=== PATIENT | female | born 2000 | race Two or more races ===

== ENCOUNTER 2024-09-10 17:26 | Emergency (ER) | payer SELFPAY ==
[2024-09-10 17:32] VITALS: BP 144/86; PULSE 72; RESP 19; TEMP 37.1; O2SAT 98
[2024-09-10 17:36] VITALS: BMI 49.8
[2024-09-10 17:50] VITALS: BP 138/72; PULSE 77; RESP 20; TEMP 36.8; O2SAT 97
[2024-09-10 17:52] VITALS: BMI 49.8
--- NOTE | 2024-09-10 17:57 | XR_ITS ---
EXAMINATION: Ankle, left . Technique: Ankle AP, oblique, lateral 3 views Date and time of exam: September 10, 2024 2157 hrs. Indications: Patient fell today with injury to the ankle, ankle pain. Findings: Acute fracture fibular shaft with 5 mm offset at the fracture site Acute displaced comminuted fracture medial malleolus Ankle subluxation with displacement of the distal articulating surface of the tibia medially relative to the talus No posterior malleolar fracture Impression: Acute fracture distal fibular shaft Acute comminuted fractures medial malleolus Ankle subluxation
--- NOTE | 2024-09-10 18:12 | PC.NURSE ---
PT WAS HIKING TRAIL OF [place] WHEN SHE TWISTED HER LEFT ANKLE, HAD TO WAIT HOURS FOR HELP TO REACH HER. PT REPORTS THAT SHE IS HAVING 7/10 PAIN. PT CAME WITH ANKLE SPLINTED, NO OBVIOUS DEFORMITY OR DISCOLORATION FOR EMS. PT FROM [place] NO PHARMACY POPPING UP. PT IS [facility] 15 ABLE TO MAKE NEEDS KNOWN, VSS ON TELE, AT BEDSIDE ATTENTIVE TO PT, CALL [facility]TE[facility] IN REACH.
--- NOTE | 2024-09-10 18:21 | PD.EDANKLE ---
Lower Extremity Injury RME/HPI General Chief Complaint: Ankle/Foot Injury Stated Complaint: LT ANKLE INJURY Time Seen by Provider: 09/10/24 18:11 Arrival date/time: 09/10/24 17:26 This is a 24-year-old female that is brought in by ambulance with complaints of left ankle pain after jumping wrong in a [place]. Patient has a history of ADHD anxiety. Related Data Previous Rx's ?Medication ?Instructions ?Recorded hydrocodone 10 mg-acetaminophen 1 tab PO Q6H PRN pain #20 tabs 09/10/24 325 mg tablet ondansetron 4 mg disintegrating 4 mg PO Q8H PRN nausea and 09/10/24 tablet vomiting #7 tabs Allergies Allergy/AdvReac Type Severity Reaction Status Date / Time No Known Allergies Allergy Verified 09/10/24 17:56 Review of Systems Review of Systems Systems Reviewed: All systems reviewed, normal except as documented Past Medical History Social History SMOKING STATUS: Never smoker ED Exam General General appearance: Present alert and in no apparent distress Head Head exam: Present atraumatic Eye Eye exam: Present normal appearance, PERRL and EOMI ENT ENT exam: Present normal exam, normal oropharynx and mucous membranes moist Neck Neck exam: Present normal inspection, full ROM and trachea midline Chest Chest inspection: Present normal inspection and symmetric chest wall rise Respiratory Respiratory exam: Present normal lung sounds bilaterally Cardiovascular Cardiovascular exam: Present regular rate, normal rhythm and normal heart sounds Abdominal Exam Abdominal exam: Present soft Extremities Exam Extremities exam: Present other (left ankle deformity with swelling, pain with rom) Back Exam Back exam: Present normal inspection and full ROM Neurological Exam Neurological exam: Present alert, oriented X3 and CN II-XII intact Psychiatric Psychiatric exam: Present normal affect and normal mood Skin Skin exam: Present warm, dry, intact and normal color Course Quality Measures none Orders Category Date Time Status Crutches .NOW Care 09/10/24 22:32 Completed IV [Insert IV] STAT Care 09/10/24 21:43 Completed XR ankle comp LT min 3V Stat Exams 09/10/24 17:57 Completed XR ankle comp LT min 3V Stat Exams 09/10/24 21:56 Completed HYDROcodone*/APAP 5/325 [[place] 5/325] Med 09/10/24 18:21 Discontinued 1 tab PO X1 ONE HYDROcodone*/APAP 5/325 [[place] 5/325] Med 09/10/24 21:32 Discontinued 1 tab PO X1 ONE HYDROcodone/APAP 10/325 [[place] 10/325] Med 09/10/24 22:33 Discontinued 1 tab PO X1 ONE Ondansetron Odt [Zofran Odt] Med 09/10/24 18:21 Discontinued 4 mg PO X1 ONE fentaNYL INJ [Sublimaze Inj] Med 09/10/24 21:42 Discontinued 75 mcg IV X1 ONE Vital Signs Vital signs: Vital Signs Temperature 98.8 F 09/10/24 17:32 Pulse Rate 72 09/10/24 17:32 Respiratory Rate 19 09/10/24 17:32 Blood Pressure 144/86 H 09/10/24 17:32 Pulse Oximetry (%) 98 09/10/24 17:32 Oxygen Delivery Method Room Air 09/10/24 17:32 Extremity Injury, Lower MDM Narrative MDM Narrative:: Stat rad report shows disrupted ankle mortise with posterior subluxation of the ankle joint, acute displaced fracture of the left medial malleolus, acute displaced fracture of the left distal fibular shaft. [address] Crawford and reviewed the radiology report. He stated he would come and put the splint on himself. He came to patient bedside and placed the splint himself. Patient treated with pain medication and felt better. Dr Alexander allowed patient to borrow one of his wheelchairs. Patient was instructed that [place] to an orthopedic surgeon. I sent patient home with pain medications patient comfortable with discharge at this time. Patient data External records reviewed:: [facility] previous records Clinical information provided by:: patient Social determinants that could affect healthcare access:: none Patient has the following chronic illnesses:: none How is presenting disease/condition affected by chronic disease/condition?: no chronic disease Evaluation data The following diagnostics were reviewed and interpreted by me:: radiology exam(s) Lab and/or radiology exams considered but not ordered:: none Interpretation Summary: see note Medications / Prescriptions Medications or Prescriptions considered but not ordered:: none Medication administrations:: Medication Administration History Discontinued Medications Hydrocodone Bitart/Acetaminophen (Hydrocodone/Apap 5/325 Tablet) 1 tab PO X1 ONE Stop: 09/10/24 18:22 Last Admin: 09/10/24 18:33 Dose: 1 tab Documented By: TM Hydrocodone Bitart/Acetaminophen (Hydrocodone/Apap 5/325 Tablet) 1 tab PO X1 ONE Stop: 09/10/24 21:33 Last Admin: 09/10/24 23:19 Dose: Not Given Documented By: CCT Non-Admin Reason: Cancelled by Provider Hydrocodone Bitart/Acetaminophen (Hydrocodone/Apap 10/325 Tab) 1 tab PO X1 ONE Stop: 09/10/24 22:34 Last Admin: 09/10/24 23:19 Dose: 1 tab Documented By: CCT Fentanyl Citrate (Fentanyl Cit Inj 50 Mcg/Ml Amp 2ml) 75 mcg IV X1 ONE Stop: 09/10/24 21:43 Last Admin: 09/10/24 21:51 Dose: 75 mcg Documented By: CCT Ondansetron HCl (Ondansetron Odt 4 Mg Tabrap) 4 mg PO X1 ONE; Protocol Stop: 09/10/24 18:22 Last Admin: 09/10/24 18:33 Dose: 4 mg Documented By: TM see mar Consultations Consultation(s) initiated? (list below): No Diagnosis Most likely diagnosis given after review of the tests above:: ankle fracture Admission Indicated Admission indicated?: not indicated Admission Request Was there a request for admission?: No Disposition Plan Disposition Plan: Discharge Discharge Attestation Discharge Attestation: The patient and all family members were given an opportunity to ask questions and understood the discharge instructions. Discharge instructions specifically effects, indications for sooner follow up or return to the emergency department, and the expected course of current diagnosis. Patient condition: Stable Discharge Plan Plan Patient Disposition: HOME (Self Care) Patient condition on transfer: Stable Prescriptions/Referrals Prescriptions/Med Rec: New ondansetron 4 mg tablet,disintegrating 4 mg PO Q8H PRN (Reason: nausea and vomiting) Qty: 7 0RF hydrocodone-acetaminophen 10-325 mg tablet 1 tab PO Q6H MDD 3 PRN (Reason: pain) Qty: 20 0RF Referrals: No Primary/Family,Physician [Primary Care Provider] - In 1 week Problem List Clinical Impression: Closed fracture of ankle, medial malleolus, Fibula fracture Patient/Caregiver Discharge Instructions Discharge Activity: activity as tolerated Education Materials: ED Fracture, Lower Extremity Additional Instructions: Patient will follow-up in the emergency room at [facility]. Take medications as prescribed. The [place] can be cut in half if pain not severe. May take Zofran if narcotics make patient nauseated. Come back to the emergency room if symptoms change or worsen. Print Language: Portuguese Stand Alone Forms: [employer] Award Info., Patient Portal Info Letter PA/RECREATION THERAPY DIRECTOR Supervising Physician PA/RECREATION THERAPY DIRECTOR Supervising Physician: alfredo
[2024-09-10] MEDS: HYDROcodone/APAP 5/325 TABLET 1 TAB PO (18:33)
[2024-09-10] MEDS: ONDANSETRON ODT 4 MG TABRAP PO (18:33)
[2024-09-10 19:46] VITALS: BP 114/71; PULSE 70; RESP 18; TEMP 36.6; O2SAT 97
--- NOTE | 2024-09-10 20:24 | PRELIM_ITS ---
Radiographs of the left ankle joint (3 views)September 10, 2024 1811 hours Clinical history: fall Alfonzo rison: No prior study is available for comparison. Findings:There is an acute displaced fracture of t he left medial mallelous. There is an acute displaced fracture of the distal fibular shaft. There is disruption of the ankle mortise with posterior subluxation of the ankle joint. The other visualized bones and joints are intact. There is mild soft tissue swelling around the ankle joint.Impression:1. Disrupted ankle mortise with posterior subluxation of the ankle joint.2. Acute displaced fracture of the left medial mallelous.3. Acute displaced fracture of the left distal fibular shaft. Report Elect ronically Signed By: Regina Clement 09/10/2024 8:24:16 PM [EST]
[2024-09-10 21:00] VITALS: BP 123/83; PULSE 60; RESP 18; TEMP 36.4; O2SAT 95
[2024-09-10] MEDS: fentaNYL CIT INJ 50 mCg/ML AMP 2ML 75 MCG IV (21:51)
--- NOTE | 2024-09-10 21:56 | XR_ITS ---
EXAMINATION: Ankle, left 2 views . Technique: AP lateral left ankle 2 views Exam date and time: September 10, 20241949 7:00 PM Comparison September 10, 2024 1812 hrs. Indications: History ankle fractures and dislocation, post reduction films Findings: Fracture distal fibular shaft with adequate alignment Improvement in alignment comminuted fracture medial malleolus There remains 8 mm medial subluxation of the distal articulating surface of the tibia relative to the dome the talus Impression: Improved alignment fibular and medial malleolar fractures There remains subluxation of the distal articulating surface of the tibia medially relative to the dome the talus
--- NOTE | 2024-09-10 22:20 | PD.ORTHCON ---
HPI Consult details Reason for consultation narrative: Pain left ankle History of present illness[place] Went to step and lost her balance. twisted left ankle. No other complaints Past Medical History Social History SMOKING STATUS: Never smoker Meds Home Medications and Allergies Allergies Allergy/AdvReac Type Severity Reaction Status Date / Time No Known Allergies Allergy Verified 09/10/24 17:56 Exam Vital Signs Temp Pulse Resp BP Pulse Ox O2 Del Method 98 F 70 18 114/71 97 Room Air 09/10/24 19:46 09/10/24 19:46 09/10/24 19:46 09/10/24 19:46 09/10/24 19:46 09/10/24 19:46 Blood pressure 114/71 Narrative Exam Patient has swelling left ankle and slight clinical malalignment. Active flexion extension of toes. Good capillary filling Assessment & Plan Additional Assessment Additional comments: X-rays show medial malleolus fracture distal fibular fracture. Unable to see fracture posterior malleolus.. Closed manipulation was carried out and she was placed in a posterior molded splint. Improved alignment. 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 Swollen to operate on at the present time. Extra padding applied he will plantar aspect foot. Plan Elevated elevated elevated. [place]. Needs to keep it up and elevated as safely as possible in car.
[2024-09-10] MEDS: HYDROcodone/APAP 10/325 TAB PO (23:19)
[2024-09-10 23:30] VITALS: BP 118/68; PULSE 71; RESP 18; TEMP 36.4; O2SAT 95
== END 2024-09-10 23:30 | disposition home or self-care (01) ==
PROVIDERS: Emergency Provider Emergency Medicine
DX: S82.55XA Nondisplaced fracture of medial malleolus of left tibia, initial encounter for closed fracture (principal); Y93.39 Activity, other involving climbing, rappelling and jumping off
CPT/HCPCS: 73610; 99284; J3010; Q0162; A9270